=== PATIENT | male | born 1960 | race Caucasian/White ===

== ENCOUNTER 2017-12-20 08:33 | Day surgery (SDC) ==
[2017-12-20] MEDS ORDERED: LIDOCAINE 1% 20 ML MDV ID STA (09:14)
[2017-12-20] MEDS ORDERED: DIPRIVAN 20 ML VIAL IVP ONE (10:15)
[2017-12-20 15:12] VITALS: BP 112/67; TEMP 98.6
--- NOTE | 2017-12-21 11:26 | OP ---
PROCEDURE: COLONOSCOPY TO THE CECUM . ENDOSCOPIST: Pari GRANT M.D. INDICATION: HISTORY OF ADENOMATOUS POLYPS INSTRUMENT: [id number]. MEDICATION: PER ANESTHESIA. PROCEDURE: The patient was positioned for colonoscopy. The digital rectal exam was negative. The colonoscope was inserted through the anus and advanced to the cecum. The cecum was identified using the ileocecal valve and the appendiceal orifice as landmarks. The scope was slowly withdrawn through an adequately prepped colon. [place] Bowel Prep score was 9. Careful inspection made of each colonic segment and the scope was withdrawn in circumferential fashion. Care was made to inspect the proximal side of the ileocecal valve and haustral folds and flexures and rectal valves. Exam is notable for scattered diverticulosis in the left colon. Retroflex exam was otherwise normal. Withdraw time 8 minutes and 43 seconds. PLAN: 1. Suggest repeat colonoscopy in 5 years. CC: Dr. Brian OTT
== END 2017-12-20 11:15 | disposition home or self-care (01) ==
LOC: SURG 08:33
PROVIDERS: ATTEND Internal Medicine Gastroenterology
DX: Z86.010 Personal history of colon polyps (principal); K57.90 Diverticulosis of intestine, part unspecified, without perforation or abscess without bleeding

== ENCOUNTER 2018-10-15 19:50 | Emergency (ER) ==
[2018-10-15 20:05] VITALS: TEMP 98.9; BMI 30.4
--- NOTE | 2018-10-15 20:27 | ED.PDOC ---
General ED Provider: Dr. GABRIELE UGARTE Chief Complaint: Head Laceration Stated Complaint: sustined right forehead injury while fixing a basketball goal Time Seen by Physician: 20:24 Mode of Arrival: Walk-In Information Source: Patient Primary Care Provider: HARITHA QIU Nursing and Triage Documentation Reviewed and Agree: Yes Does patient meet sepsis criteria?: No System Inflammatory Response Syndrome: Not Applicable Sepsis Protocol: For patient's 13 years and over: Temp is 96.8 and below OR 101 and greater Pulse >90 BPM Resp >20/minute Acutely Altered Mental Status Are patient's symptoms suggestive of a new infection, such as: -Pneumonia -Skin, Soft Tissue -Endocarditis -UTI -Bone, Joint Infection -Implantable Device -Acute Abdominal Infection -Wound Infection -Meningitis -Blood Stream Catheter Infection -Unknown Trauma/Injury Complaint Exam - Head Injury Complaint/Exam Location of Pain: Reports: Forehead Mechanism of Injury: Reports: Trauma (blunt trauma to head with wood ) Onset/Duration: 1 hour Symptoms Are: Still present Initial Severity: Severe Current Severity: Moderate Character: Reports: Sharp Aggravating: Reports: None Alleviating: Reports: None Associated Signs and Symptoms: Denies: Confusion, Memory loss, Seizure, Epistaxis, Dental malocclusion, Neck pain, Nausea, Vomiting Loss of Consciousness: None Cervical Spine Injury Risk Factors: Present: None Related Surgical History: Reports: None Immobilization Removed Post Exam: No Head Injury Findings: Present: Normal findings Glascow Coma Scale (see protocol): 15 Focal Weakness: Present: None Focal Sensory Loss: Present: None Gait: Normal Head Picture: 1 - v shapped laceration measuring 5.5 cm Differential Diagnoses: Intracranial Bleed, Trauma, Other (scalp laceration ) Review of Systems - Review Of Systems Constitutional: Reports: No symptoms Eyes: Reports: No symptoms Ears, Nose, Mouth, Throat: Reports: No symptoms Respiratory: Reports: No symptoms Cardiac: Reports: No symptoms GI: Reports: No symptoms : Reports: No symptoms Musculoskeletal: Reports: No symptoms Skin: Reports: No symptoms Neurological: Reports: Anxiety, Headache Endocrine: Reports: No symptoms Hematologic/Lymphatic: Reports: No symptoms All Other Systems: Reviewed and Negative Past Medical History - Past Medical History Previously Healthy: Yes Endocrine: Reports: Dyslipidemia Cardiovascular: Reports: None Respiratory: Reports: None Hematological: Reports: None Gastrointestinal: Reports: GERD Genitourinary: Reports: None Neuro/Psych: Reports: None Musculoskeletal: Reports: None Cancer: Reports: None - Surgical History General Surgical History: Reports: None - Family History Family History: Reports: Unknown - Social History Smoking Status: Never smoker Hx Substance Use: No Alcohol Screening: None - Immunizations Tetanus Shot up to Date: No (unsure) Physical Exam - Physical Exam Appearance: Well-appearing Eyes: BON, EOMI Neck: Nonsupple Respiratory: Airway patent, Breath sounds clear, Breath sounds equal, Respirations nonlabored Cardiovascular: RRR, Pulses normal, No rub, No murmur GI/: Soft, Nontender, No masses, Bowel sounds normal, No Organomegaly Skin: Warm, Dry Neurological: Alert, Oriented Psychiatric: Anxious Interpretation - Radiology Interpretation Radiology Interpretation By: Radiologist Radiology Results: Negative Exam Interpreted: CT Scan (head ) Procedures - Laceration/Wound Repair Forehead Wound Description: Irregular, Stellate Wound Length (cm): 5.5 Wound Width: 0.3 Wound Depth: 0.3 Wound Explored: Clean Wound Irrigated: No Wound Prep: Hibiclens Anesthesia: Lidocaine Suture Size and Type: 5.0 Ethlon Number of Sutures: 21 (Running ) Layer Closure?: Yes Sterile Dressing Applied?: Yes Progress: Tolerated fairly Re-Evaluation - Re-Evaluation Time of Re-Evaluation: 21:37 Status: Improved Pain Level: better Appearance: NAD Lungs: Clear Neuro: Alert and Oriented X3 Critical Care Note - Critical Care Note Total Time (mins): 0 Course - Course Orders, Labs, Meds: Orders Category Date Time Status Diphth,Pertuss(Acell),Tet Vac [Boostrix] MEDS 10/15/18 20:46 Discontinued 0.5 ml IM .STK-MED ONE Lidocaine HCl/Pf [Lidocaine HCl 1% Sdv] MEDS 10/15/18 20:29 Discontinued 5 ml .ROUTE .STK-MED ONE Lidocaine HCl/Pf [Lidocaine HCl 1% Sdv] MEDS 10/15/18 20:28 Discontinued 5 ml SUBCUT ONCE STA CT HEAD W/O CONTRAST Stat RADS 10/15/18 21:36 Completed Medications Discontinued Medications Generic Name Dose Route Start Last Admin Trade Name Scott PRN Reason Stop Dose Admin Lidocaine HCl 5 ml 10/15/18 20:28 10/15/18 20:49 Lidocaine Hcl 1% Sdv SUBCUT 10/15/18 20:29 5 ml ONCE STA Administration Vital Signs: Temp Pulse Resp BP Pulse Ox 10/15/18 21:45 144/88 H 10/15/18 19:52 98.9 F 76 20 166/97 H 96 Departure - Departure Time of Disposition: 22:39 Disposition: HOME SELF-CARE Discharge Problem: Laceration of forehead without complication Qualifiers: Encounter type: initial encounter Qualified Code(s): S01.81XA - Laceration without foreign body of other part of head, initial encounter Instructions: Diphtheria/Acellular Pertussis/Tetanus Vaccine (By injection), Laceration (ED) Condition: Stable Pt referred to PMD for follow-up: Yes IPMP verified?: No Additional Instructions: take Motrin or Tylenol as needed for pain Have sutures removed in 7-10 days Report any signs of infection Allergies/Adverse Reactions: Allergies Penicillins Adverse Reaction (Mild, Verified 10/15/18 20:05) Rash Home Medications: Ambulatory Orders Simvastatin 1 tab PO DAILY 08/06/14 Famotidine [Pepcid] 1 tab PO DAILY 12/14/17 Disposition Discussed With: Patient, Family
[2018-10-15] MEDS ORDERED: LIDOCAINE HCL 1% SDV SUBCUT STA (20:28)
[2018-10-15] MEDS ORDERED: LIDOCAINE HCL 1% SDV ONE (20:29)
[2018-10-15] MEDS ORDERED: BOOSTRIX IM ONE ×2 (20:36→20:46)
[2018-10-15 21:46] VITALS: BP 144/88
--- NOTE | 2018-10-15 22:09 | CT ---
EXAM: CT head without contrast. HISTORY: Head injury with possible loss of consciousness. PROCEDURE: Contiguous axial CT images of the head without contrast with coronal and sagittal reforma ts. FINDINGS: The ventricles and basal cisterns are normal in size and configuration. No evidence of ma ss or midline shift. No intracranial hemorrhage or evidence of large vessel infarct. No extra-axial fluid collection. There is mucosal thickening in the paranasal sinuses. The mastoid air cells are normal in appearance. There is minimal soft tissue swelling in the right frontal scalp. Impression: No intracranial abnormality or skull fracture. Minimal soft tissue swelling in the right frontal scalp. Paranasal sinusitis.
== END 2018-10-15 22:40 | disposition home or self-care (01) ==
LOC: ED 19:50
DX: S01.81XA Laceration without foreign body of other part of head, initial encounter (principal); W22.8XXA Striking against or struck by other objects, initial encounter
CPT/HCPCS: 90471; 90715; 96372; 99282